=== PATIENT | male | born 1970 | race Caucasian/White ===

== ENCOUNTER 2016-08-02 21:07 | Emergency (ER) | payer SELFPAY ==
[2016-08-02 21:25] VITALS: TEMP 98.9
[2016-08-02] MEDS ORDERED: SODIUM CHLORIDE 0.9% 1,000 ML IV STA (22:04)
[2016-08-02] MEDS ORDERED: IPRATROPIUM-ALBUTEROL 3 ML NEB INHALATION STA (22:05)
[2016-08-02 22:22] VITALS: RESP 18
--- NOTE | 2016-08-02 22:32 | XR ---
EXAMINATION TYPE: XR chest 2V DATE OF EXAM: 08/02/2016 10:26 PM COMPARISON: NONE HISTORY: Short of breath and fever TECHNIQUE: Frontal and lateral views of the chest are obtained. FINDINGS: There is some patchy airspace infiltrate in the right upper lobe that is probably in the a nterior segment. The other lung daniels are clear. Heart and mediastinum are normal. Diaphragm is norm al. Bony thorax is intact. IMPRESSION: Right upper lobe pneumonia.
[2016-08-02 22:36] LABS: CH 34.4; CHCM 34.5; HCT 48.5 % (39.0-53.0); HDW 2.29; HGB 16.3 gm/dL (13.0-17.5); MCH 33.5 pg (25.0-35.0); MCHC 33.5 g/dL (31.0-37.0); MCV 100.1 fL (80.0-100.0); Mean Platelet Volume 7.2; RBC 4.85 m/uL (4.30-5.90); RDW 12.5 % (11.5-15.5); WBC 15.5 k/uL (3.8-10.6); WBC (Perox) 15.95
[2016-08-02 22:52] LABS: Partial Thromboplastin Time 31.3 sec (22.0-30.0); Prothrombin Time 10.5 sec (9.0-12.0)
[2016-08-02 22:59] LABS: Creatine Kinase 155 U/L (55-170)
--- NOTE | 2016-08-02 23:00 | ED ---
URI HPI - General Chief Complaint: Upper Respiratory Infection Stated Complaint: fever Time Seen by Provider: 08/02/16 21:30 Source: patient, RN notes reviewed Mode of arrival: ambulatory Limitations: no limitations - History of Present Illness Initial Comments: Patient is a 46-year-old male presents emergency room for evaluation of upper respiratory symptoms. Patient states he began not feeling well on . Patient states he has a cough, congestion and sore throat. Patient states that he's also had fevers. Patient states he's been alternating Tylenol and Motrin. Patient states that he has productive cough. Patient does admit he smokes a pack per day. Patient states he's been feeling short of breath and coughing. Patient states he has throat irritation from coughing. Patient denies abdominal pain or chest pain. Patient denies headache or dizziness. Patient states having slight right ear pain. Patient denies any pain or burning during urination, trouble urinating or blood in urine. Patient denies any flank pain. Patient denies any significant past medical history. Patient denies taking any medications. Patient states been taking [id number] medications for flu symptoms with no relief of symptoms. Patient denies receiving his influenza vaccine this year. - Related Data Home Medications Medication Instructions Recorded Confirmed Acetaminophen Tab [Tylenol Tab] 1,000 mg PO Q6HR PRN 08/02/16 08/02/16 D-Methorphan/Acetamin/Doxylamn 30 ml PO Q6H PRN 08/02/16 08/02/16 [Vicks Nyquil Cold & Flu Liquid] Dm/PE/Acetaminophen/Doxylamine 1 cap PO Q6H PRN 08/02/16 08/02/16 [Shruti-Anderson Plus Day-Night Cp] Ibuprofen [Motrin] 600 mg PO Q6H PRN 08/02/16 08/02/16 Previous Rx's Medication Instructions Recorded Albuterol Inhaler [Ventolin Hfa 1 - 2 puff INHALATION Q6HR PRN #1 08/03/16 Inhaler] inhaler Azithromycin [Zithromax Z-pack] 250 mg PO DIRECTED #6 tab 08/03/16 Allergies Allergy/AdvReac Type Severity Reaction Status Date / Time Penicillins Allergy Rash/Hives Verified 08/02/16 21:43 Review of Systems ROS Statement: Those systems with pertinent positive or pertinent negative responses have been documented in the HPI. ROS Other: All systems not noted in ROS Statement are negative. Past Medical History Past Medical History: No Reported History History of Any Multi-Drug Resistant Organisms: None Reported Past Surgical History: No Surgical Hx Reported Past Psychological History: No Psychological Hx Reported Smoking Status: Current every day smoker Past Alcohol Use History: Occasional Past Drug Use History: None Reported General Exam - General Exam Comments Initial Comments: Sitting in exam room, no acute distress. Limitations: no limitations General appearance: alert, in no apparent distress Head exam: Present: atraumatic, normocephalic, normal inspection Eye exam: Present: normal appearance ENT exam: Present: normal exam, normal oropharynx, mucous membranes moist, TM's normal bilaterally, normal external ear exam Neck exam: Present: normal inspection, full ROM. Absent: tenderness, lymphadenopathy Respiratory exam: Present: wheezes. Absent: respiratory distress Cardiovascular Exam: Present: regular rate, normal rhythm, normal heart sounds GI/Abdominal exam: Present: soft, normal bowel sounds. Absent: distended, tenderness, guarding, rebound, rigid Extremities exam: Present: normal inspection Back exam: Present: normal inspection Neurological exam: Present: alert, oriented X3, CN II-XII intact, normal gait Psychiatric exam: Present: normal affect, normal mood Skin exam: Present: warm, dry, intact, normal color. Absent: rash Course Vital Signs 08/02/16 08/02/16 08/02/16 21:23 22:10 22:20 Temperature 98.9 F Pulse Rate 100 88 98 Respiratory 20 Rate Blood Pressure 137/86 O2 Sat by Pulse 96 Oximetry 08/02/16 08/02/16 08/02/16 22:21 22:30 23:58 Temperature 98.9 F 98.9 F Pulse Rate 89 86 Respiratory 18 18 18 Rate Blood Pressure 128/78 129/81 O2 Sat by Pulse 95 97 Oximetry Medical Decision Making - Medical Decision Making Patient is a 46-year-old male presents to the emergency room for evaluation of fever, cough and congestion. Rapid influenza negative. Chest x-ray significant for right upper lobe pneumonia. Patient's d-dimer elevated. CT of chest shows no signs of pulmonary embolism. Patient states he is feeling better after breathing treatment. WBC slightly elevated. Patient will be started on IV Rocephin and PO azithromycin and sent home with azithromycin. Advised patient to follow up with his primary care provider for reevaluation in 1 to 2 days. Patient states he understands everything that was discussed with him. Return parameters discussed. Case discussed with Dr. Dahl. - Lab Data Result diagrams: 08/02/16 22:15 08/02/16 22:15 Lab Results 08/02/16 08/02/16 08/02/16 Range/Units 22:15 22:15 22:15 WBC 15.5 H (3.8-10.6) k/uL RBC 4.85 (4.30-5.90) m/uL Hgb 16.3 (13.0-17.5) gm/dL Hct 48.5 (39.0-53.0) % MCV 100.1 H (80.0-100.0) fL MCH 33.5 (25.0-35.0) pg MCHC 33.5 (31.0-37.0) g/dL RDW 12.5 (11.5-15.5) % Plt Count 203 (150-450) k/uL Neutrophils % (Manual) 53.0 % Band Neutrophils % 16.5 % Lymphocytes % (Manual) 17.5 % Monocytes % (Manual) 11.5 % Eosinophils % (Manual) 1.5 % Neutrophils # (Manual) 10.8 H (1.3-7.7) k/uL Lymphocytes # (Manual) 2.7 (1.0-4.8) k/uL Monocytes # (Manual) 1.8 H (0-1.0) k/uL Eosinophils # (Manual) 0.2 (0-0.7) k/uL Nucleated RBCs 0 (0-0) /100 WBC Manual Slide Review Performed Large Platelets Present Polychromasia Present Anisocytosis (manual) Present PT (9.0-12.0) sec INR (<1.1) APTT (22.0-30.0) sec D-Dimer (<0.60) mg/L FEU Sodium (137-145) mmol/L Potassium (3.5-5.1) mmol/L Chloride (98-107) mmol/L Carbon Dioxide (22-30) mmol/L Anion Gap mmol/L BUN (9-20) mg/dL Creatinine (0.66-1.25) mg/dL Est GFR (MDRD) Af Amer (>60 ml/min/1.73 sqM) Est GFR (MDRD) Non-Af (>60 ml/min/1.73 sqM) Glucose (74-99) mg/dL Plasma Lactic Acid Tyler (0.7-2.0) mmol/L Calcium (8.4-10.2) mg/dL Magnesium (1.6-2.3) mg/dL Total Bilirubin (0.2-1.3) mg/dL AST (17-59) U/L ALT (21-72) U/L Alkaline Phosphatase (38-126) U/L Total Creatine Kinase 155 (55-170) U/L CK-MB (CK-2) 0.5 (0.0-2.4) ng/mL CK-MB (CK-2) Rel Index 0.3 Troponin I <0.012 (0.000-0.034) ng/mL Total Protein (6.3-8.2) g/dL Albumin (3.5-5.0) g/dL Influenza Type A RNA Not Detected (Not Detectd) Influenza Type B (PCR) Not Detected (Not Detectd) 08/02/16 08/02/16 08/02/16 Range/Units 22:15 22:15 22:15 WBC (3.8-10.6) k/uL RBC (4.30-5.90) m/uL Hgb (13.0-17.5) gm/dL Hct (39.0-53.0) % MCV (80.0-100.0) fL MCH (25.0-35.0) pg MCHC (31.0-37.0) g/dL RDW (11.5-15.5) % Plt Count (150-450) k/uL Neutrophils % (Manual) % Band Neutrophils % % Lymphocytes % (Manual) % Monocytes % (Manual) % Eosinophils % (Manual) % Neutrophils # (Manual) (1.3-7.7) k/uL Lymphocytes # (Manual) (1.0-4.8) k/uL Monocytes # (Manual) (0-1.0) k/uL Eosinophils # (Manual) (0-0.7) k/uL Nucleated RBCs (0-0) /100 WBC Manual Slide Review Large Platelets Polychromasia Anisocytosis (manual) PT 10.5 (9.0-12.0) sec INR 1.0 (<1.1) APTT 31.3 H (22.0-30.0) sec D-Dimer 1.11 H (<0.60) mg/L FEU Sodium 139 (137-145) mmol/L Potassium 4.1 (3.5-5.1) mmol/L Chloride 104 (98-107) mmol/L Carbon Dioxide 23 (22-30) mmol/L Anion Gap 12 mmol/L BUN 16 (9-20) mg/dL Creatinine 0.96 (0.66-1.25) mg/dL Est GFR (MDRD) Af Amer >60 (>60 ml/min/1.73 sqM) Est GFR (MDRD) Non-Af >60 (>60 ml/min/1.73 sqM) Glucose 94 (74-99) mg/dL Plasma Lactic Acid Tyler 0.7 (0.7-2.0) mmol/L Calcium 9.3 (8.4-10.2) mg/dL Magnesium 1.9 (1.6-2.3) mg/dL Total Bilirubin 0.6 (0.2-1.3) mg/dL AST 29 (17-59) U/L ALT 23 (21-72) U/L Alkaline Phosphatase 73 (38-126) U/L Total Creatine Kinase (55-170) U/L CK-MB (CK-2) (0.0-2.4) ng/mL CK-MB (CK-2) Rel Index Troponin I (0.000-0.034) ng/mL Total Protein 6.7 (6.3-8.2) g/dL Albumin 3.8 (3.5-5.0) g/dL Influenza Type A RNA (Not Detectd) Influenza Type B (PCR) (Not Detectd) 08/03/16 00:23 NSR, ventricular rate 86 bpm, OR interval 188 ms, QRS duration 146 ms, QT/QTC 406/485 ms - Radiology Data Radiology results: report reviewed, image reviewed Disposition Clinical Impression: Right upper lobe pneumonia Disposition: HOME SELF-CARE Condition: Good Instructions: Community Acquired Pneumonia (ED) Additional Instructions: Take antibiotics as directed. Use inhaler as needed. Alternate Tylenol and Motrin as needed for fever. Please follow up with primary care provider for reevaluation in 1-2 days. If any new symptom arises or symptoms worsen, return to ER as soon as possible. Prescriptions: Albuterol Inhaler [Ventolin Hfa Inhaler] 1 - 2 puff INHALATION Q6HR PRN #1 inhaler PRN Reason: Shortness Of Breath Azithromycin [Zithromax Z-pack] 250 mg PO DIRECTED #6 tab Referrals: None,Stated [Primary Care Provider] - 1-2 days Time of Disposition: 00:20
[2016-08-02 23:08] LABS: ALT 23 U/L (21-72); AST 29 U/L (17-59); Alkaline Phosphatase 73 U/L (38-126); Anion Gap 12 mmol/L; Blood Urea Nitrogen 16 mg/dL (9-20); Calcium 9.3 mg/dL (8.4-10.2); Carbon Dioxide 23 mmol/L (22-30); Chloride 104 mmol/L (98-107); Glucose 94 mg/dL (74-99); Magnesium 1.9 mg/dL (1.6-2.3); Non-African American GFR(MDRD) >60 (>60 ml/min/1.73 sqM); Potassium 4.1 mmol/L (3.5-5.1); Sodium 139 mmol/L (137-145); Total Bilirubin 0.6 mg/dL (0.2-1.3); Total Protein 6.7 g/dL (6.3-8.2)
[2016-08-02 23:11] LABS: Creatine Kinase MB 0.5 ng/mL (0.0-2.4); Troponin I <0.012 ng/mL (0.000-0.034)
[2016-08-02] MEDS ORDERED: RX INFO: IV CONTRAST WAS GIVEN 1 EACH MISC MISCELLANE PRN (23:14)
--- NOTE | 2016-08-02 23:50 | CT ---
EXAMINATION TYPE: CT angio chest DATE OF EXAM: 08/02/2016 11:37 PM COMPARISON: NONE HISTORY: fever, SOB, elevated d-dimer, R/O PE CT DLP: DLP:463.20 mGycm Automated exposure control for dose reduction was used. CONTRAST: CTA scan of the thorax is performed with IV Contrast, patient injected with 65ml injected 35ml wasted mL of Omnipaque 350, pulmonary embolism protocol. . FINDINGS: There are 3-D post processed images. There is some patchy groundglass interstitial infiltrate in both upper lobes. There is no pleural eff usion. There is no pericardial effusion. There are bilateral bronchial lymph nodes that measure up to 1.5 cm. There is no evidence of thoracic aortic aneurysm or a dissection. I see no filling defects in the pulmonary arteries. There are a few mediastinal lymph nodes that emil ure up to 1 cm. Bony thorax is intact. IMPRESSION: NO EVIDENCE OF PULMONARY EMBOLISM. PULMONARY INTERSTITIAL INFILTRATES MOSTLY IN THE UPPER LOBES AND W ORSE ON THE RIGHT SIDE WITH MILD ADENOPATHY. SARCOIDOSIS SHOULD BE CONSIDERED. FINDINGS ARE NONSPECIF IC.
[2016-08-02] MEDS ORDERED: AZITHROMYCIN 500 MG TAB PO STA (23:57)
[2016-08-02 23:59] VITALS: BP 129/81; PULSE 86
[2016-08-03 00:34] LABS: Add Differential Manual Differential
[2016-08-03 00:38] LABS: Band Neutrophils % 16.5 %; Nucleated Red Blood Cells 0 /100 WBC (0-0); Total Cells Counted 200
[2016-08-03 00:39] LABS: Polychromasia Present
[2016-08-03 00:40] LABS: Large Platelets Present; Manual Review Performed
== END 2016-08-03 00:41 | disposition home or self-care (01) ==
LOC: EC 21:07
DX: J18.9 Pneumonia, unspecified organism (principal); F17.200 Nicotine dependence, unspecified, uncomplicated; Z88.0 Allergy status to penicillin
CPT/HCPCS: 36415; 94640; 93005; 85379; 80053; 82550; 82553; 83605; 83735; 84484; 85025; 85610; 85730; 87040; 87502; 71020; 71275; 99284; 96360; 96361; 96365; Q9967; J0696

== ENCOUNTER 2016-10-05 06:53 | Emergency (ER) | payer OTHER ==
[2016-10-05] MEDS ORDERED: HYDROcodone/APAP 7.5-325MG 1 EACH TAB PO ONE (07:28)
[2016-10-05] MEDS ORDERED: CYCLOBENZAPRINE 10 MG TAB PO STA (07:29)
[2016-10-05] MEDS ORDERED: predniSONE 50 MG TAB PO STA (07:29)
[2016-10-05] MEDS ORDERED: IBUPROFEN 800 MG TAB PO STA (07:30)
--- NOTE | 2016-10-05 07:33 | ED ---
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 He states was so severe brought him down. He states he gets worse with movement or certain positional changes. It can be sometimes sharp shooting achy. At rest currently at 7/10 in severity. He has been taking Motrin without much relief. He denies any urinary or fecal incontinence any weakness was upper or lower extremities or any other injuries. No fevers chills or sweats. MD Complaint: back pain, back injury - Related Data Home Medications Medication Instructions Recorded Confirmed Ibuprofen [Motrin] 400 mg PO Q6HR PRN 10/05/16 10/05/16 Previous Rx's Medication Instructions Recorded Cyclobenzaprine [Flexeril] 10 mg PO TID #14 tab 10/05/16 Hydrocodone/Acetaminophen [[place] 1 each PO Q6HR PRN #20 tab 10/05/16 5-325] predniSONE 20 mg PO BID #10 tab 10/05/16 Allergies Allergy/AdvReac Type Severity Reaction Status Date / Time Penicillins Allergy Rash/Hives Verified 10/05/16 07:47 Review of Systems ROS Statement: Those systems with pertinent positive or pertinent negative responses have been documented in the HPI. ROS Other: All systems not noted in ROS Statement are negative. Past Medical History Past Medical History: No Reported History History of Any Multi-Drug Resistant Organisms: None Reported Past Surgical History: No Surgical Hx Reported Past Psychological History: No Psychological Hx Reported Smoking Status: Current every day smoker Past Alcohol Use History: Occasional Past Drug Use History: None Reported General Exam - General Exam Comments Initial Comments: This a well-developed well-nourished awake alert oriented 3 male Limitations: no limitations General appearance: alert, anxious, in distress Head exam: Present: atraumatic, normocephalic, normal inspection Eye exam: Present: normal appearance, PERRL, EOMI. Absent: scleral icterus, conjunctival injection, periorbital swelling ENT exam: Present: normal exam, mucous membranes moist Neck exam: Present: normal inspection. Absent: tenderness, meningismus, lymphadenopathy Respiratory exam: Present: normal lung sounds bilaterally. Absent: respiratory distress, wheezes, rales, rhonchi, stridor Cardiovascular Exam: Present: regular rate, normal rhythm, normal heart sounds. Absent: systolic murmur, diastolic murmur, rubs, gallop, clicks GI/Abdominal exam: Present: soft, normal bowel sounds. Absent: distended, tenderness, guarding, rebound, rigid Rectal exam: Present: deferred Extremities exam: Present: normal inspection. Absent: full ROM Back exam: Present: tenderness, muscle spasm, paraspinal tenderness. Absent: CVA tenderness (R), CVA tenderness (L), vertebral tenderness (Tenderness palpation over the L4 5 S1 paraspinous muscles of the spinous process tenderness mild tenderness to the superior gluteus more in the right than the left.) Neurological exam: Present: alert, oriented X3, CN II-XII intact Psychiatric exam: Present: normal affect, normal mood Skin exam: Present: warm, dry, intact, normal color. Absent: rash Course Vital Signs 10/05/16 10/05/16 06:59 08:21 Temperature 97.9 F Pulse Rate 83 76 Respiratory 18 18 Rate Blood Pressure 177/98 171/102 O2 Sat by Pulse 98 98 Oximetry - Reevaluation(s) Reevaluation #1: 10/05/16 07:33 The patient was offered choices for pain medication he prefers oral. Medical Decision Making - Medical Decision Making I did discuss the findings with the patient and his he is feeling a bit better. He will be placed on NSAIDS and muscle relaxers off X 3 days with ortho FU. - Radiology Data Radiology results: report reviewed, image reviewed (i reviewed the x rays and reports no acute changes.) Disposition Clinical Impression: Strain of lumbar region, Mechanical back pain Disposition: HOME SELF-CARE Condition: Good Instructions: Acute Low Back Pain (ED), Low Back Strain (ED) Prescriptions: Cyclobenzaprine [Flexeril] 10 mg PO TID #14 tab Hydrocodone/Acetaminophen [[place] 5-325] 1 each PO Q6HR PRN #20 tab PRN Reason: Pain predniSONE 20 mg PO BID #10 tab Referrals: None,Stated [Primary Care Provider] - 1-2 days
[2016-10-05] MEDS ORDERED: HYDROmorphone 1 MG/ML 1 ML SYRINGE IVP STA (07:35)
[2016-10-05] MEDS ORDERED: LORazepam 2 MG/ML SYRINGE IV STA (07:35)
[2016-10-05] MEDS ORDERED: PROPOFOL 10 MG/ML 100 ML VIAL IV ONE (07:35)
--- NOTE | 2016-10-05 08:09 | XR ---
EXAMINATION TYPE: XR lumbosacral spine min 4V DATE OF EXAM ORDERED: 10/05/2016 8:02 AM HISTORY: Pain. COMPARISON: None. FINDINGS: Vertebral body height and alignment are maintained. There is no spondylolysis or spondylol isthesis. There is mild hypertrophic spondylosis at L3-4 and L4-5. There is minimal spondylosis defor dalton at L2-3 and L3-4. The pedicles are intact. The facets are unremarkable. IMPRESSION: 1. NO ACUTE OSSEOUS LESION. 2. MILD DEGENERATIVE CHANGE.
[2016-10-05 08:22] VITALS: PULSE 76
[2016-10-05 10:02] VITALS: BP 153/99; RESP 20; TEMP 99.5
== END 2016-10-05 10:02 | disposition home or self-care (01) ==
LOC: EC 06:53
DX: S39.012A Strain of muscle, fascia and tendon of lower back, initial encounter (principal); F17.200 Nicotine dependence, unspecified, uncomplicated; Z88.0 Allergy status to penicillin; X58.XXXA Exposure to other specified factors, initial encounter; Y99.0 Civilian activity done for income or pay
CPT/HCPCS: 72110; 99283; J7512

== ENCOUNTER 2019-05-23 10:10 | Observation (INO) | payer BC ==
[2019-05-23] MEDS ORDERED: ASPIRIN 81 MG PO STA (10:40)
--- NOTE | 2019-05-23 10:48 | ED ---
Chest Pain HPI - General Chief Complaint: Chest Pain Stated Complaint: chest pain/left arm numbness Time Seen by Provider: 05/23/19 10:30 Source: patient Mode of arrival: ambulatory Limitations: no limitations - History of Present Illness Initial Comments: Patient is a 48-year-old male with history of hypertension presenting to the emergency department with chief complaint of chest pain. Patient states this morning he is noticed a sudden onset of right-sided chest pain without any radiation that was followed by a tingling sensation in his left hand that radiated proximally. He also reports developing pain along the left shoulder that radiated to the left side of his neck. States the pain and since resolved although the sensation is left upper extremity remains. He denies any lightheadedness, dizziness, diaphoretic episodes, nausea or vomiting. Does report mild shortness of breath and states that is his baseline because he is a lifelong smoker. Patient denies a history of hyperlipidemia but does have a strong family history of early cardiovascular disease. 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 Does not take aspirin. Denies left-sided versus right sudden weakness or paresthesias. Denies any blurred vision. Denies any abdominal or back pain. - Related Data Home Medications Medication Instructions Recorded Confirmed Ibuprofen [Motrin] 800 mg PO TID PRN 10/05/16 05/23/19 Allergies Allergy/AdvReac Type Severity Reaction Status Date / Time Penicillins Allergy Severe Rash/Hives Verified 05/23/19 12:41 Review of Systems ROS Statement: Those systems with pertinent positive or pertinent negative responses have been documented in the HPI. ROS Other: All systems not noted in ROS Statement are negative. EKG Findings - EKG Comments: EKG Findings:: Normal sinus rhythm, right bundle branch block, similar EKG to 08/02/16. Ventricular rate 76, MS interval 190, QRS duration 144, QTC 479 Past Medical History Past Medical History: No Reported History History of Any Multi-Drug Resistant Organisms: None Reported Past Surgical History: No Surgical Hx Reported Past Psychological History: No Psychological Hx Reported Smoking Status: Current every day smoker Past Alcohol Use History: Occasional Past Drug Use History: None Reported General Exam Limitations: no limitations General appearance: alert, in no apparent distress Head exam: Present: atraumatic, normocephalic, normal inspection Eye exam: Present: normal appearance, PERRL, EOMI Pupils: Present: normal accommodation ENT exam: Present: normal exam, normal oropharynx, mucous membranes moist, TM's normal bilaterally, normal external ear exam Neck exam: Present: normal inspection, full ROM Respiratory exam: Present: normal lung sounds bilaterally. Absent: respiratory distress, wheezes, rales Cardiovascular Exam: Present: regular rate, normal rhythm, normal heart sounds Extremities exam: Present: normal inspection, full ROM, normal capillary refill, other (+2 ulnar and radial pulses bilaterally.) Back exam: Present: normal inspection, full ROM Neurological exam: Present: alert, oriented X3, CN II-XII intact, normal gait Psychiatric exam: Present: normal affect, normal mood Skin exam: Present: warm, dry, intact, normal color Course Vital Signs 05/23/19 10:20 Temperature 97.8 F Pulse Rate 76 Respiratory 20 Rate Blood Pressure 171/97 O2 Sat by Pulse 99 Oximetry Chest Pain [facility] - Differential Diagnosis ACS, Chest Wall Syndrome - [facility] Patient is a 48-year-old male presenting to the emergency department with a chief complaint of left shoulder pain. Patient presenting with atypical chest pain atypical features. Left shoulder pain somewhat reproducible with palpation. Chest x-ray is unremarkable aside from a calcified granuloma on the left lung base. Initial troponin is negative. EKG shows a right bundle-branch block although it appears to be present from an EKG from 3 years ago. He reports the symptoms have since resolved. He says the symptoms have mostly resolved since. Patient was given 325 of aspirin initially. Patient has a heart score of 5. Patient will be admitted for serial troponins. Case discussed with Dr. Owens. Abdomen physician is . Cardiology consulted. Disposition Clinical Impression: Chest pain, Right bundle branch block (RBBB) on electrocardiogram (ECG) Disposition: ADMITTED IP TO THIS [facility] Condition: Stable Instructions (If sedation given, give patient instructions): Chest Pain (ED) Additional Instructions: Patient will be admitted Is patient prescribed a controlled substance at d/c from ED?: No Referrals: Jairo Mccoy MD [Primary Care Provider] - 1-2 days Time of Disposition: 12:50
[2019-05-23 11:08] LABS: Basophils # (A) 0.2 k/uL (0-0.2); Basophils % (A) 2 %; Eosinophils # (A) 0.2 k/uL (0-0.7); Eosinophils % (A) 1 %; HGB 17.4 gm/dL (13.0-17.5); Lymphocytes # (A) 2.5 k/uL (1.0-4.8); Lymphocytes % (A) 21 %; MCH 34.3 pg (25.0-35.0); MCHC 33.5 g/dL (31.0-37.0); MCV 102.2 fL (80.0-100.0); Mean Platelet Volume 7.6; Monocytes # (A) 0.8 k/uL (0-1.0); Monocytes % (A) 7 %; Neutrophils # (A) 7.7 k/uL (1.3-7.7); Neutrophils % (A) 67 %; Platelet Count 209 k/uL (150-450); RBC 5.09 m/uL (4.30-5.90); WBC 11.6 k/uL (3.8-10.6)
[2019-05-23 11:15] LABS: ALT 24 U/L (4-49); AST 28 U/L (17-59); African American GFR (CKD) >90 (>60 ml/min/1.73 sqM); Albumin 4.1 g/dL (3.5-5.0); Alkaline Phosphatase 78 U/L (38-126); Anion Gap 8 mmol/L; Blood Urea Nitrogen 15 mg/dL (9-20); Calcium 9.4 mg/dL (8.4-10.2); Carbon Dioxide 28 mmol/L (22-30); Chloride 104 mmol/L (98-107); Glucose 99 mg/dL (74-99); Non-African American GFR(CKD) >90 (>60 ml/min/1.73 sqM); Potassium 3.9 mmol/L (3.5-5.1); Sodium 140 mmol/L (137-145); Total Bilirubin 0.6 mg/dL (0.2-1.3)
[2019-05-23 11:25] LABS: INR 0.9 (<1.2); Partial Thromboplastin Time 30.3 sec (22.0-30.0); Prothrombin Time 10.2 sec (9.0-12.0)
--- NOTE | 2019-05-23 11:27 | XR ---
EXAMINATION TYPE: XR chest 2V DATE OF EXAM: 05/23/2019 COMPARISON: Chest x-ray and CTA chest August 02, 2016. HISTORY: Chest pain. TECHNIQUE: Frontal and lateral views of the chest are obtained. FINDINGS: Stable roughly 1 cm calcified nodule or granuloma left lung base period There is no focal air space opacity, pleural effusion, or pneumothorax seen. The cardiac silhouette size is within nor mal limits. The osseous structures are intact. IMPRESSION: No suspicious acute process.
[2019-05-23] MEDS ORDERED: NITROGLYCERIN SL TABS 0.4 MG TAB SUBLINGUAL PRN (12:43)
[2019-05-24 07:10] VITALS: RESP 18
[2019-05-24 08:07] LABS: Cholesterol 256 mg/dL (<200); HDL Cholesterol 39 mg/dL (40-60); LDL Cholesterol,Calculated 189 mg/dL (0-99); Triglycerides 139 mg/dL (<150)
--- NOTE | 2019-05-24 08:52 | US ---
EXAMINATION TYPE: US gallbladder DATE OF EXAM: 05/24/2019 COMPARISON: NONE CLINICAL HISTORY: abd pain. ABD/Chest pain EXAM MEASUREMENTS: Liver Length: 14.1 cm Gallbladder Wall: 0.2 cm CBD: 0.4 cm Right Kidney: 10.8 x 5.3 x 4.9 cm Pancreas: Obscured by bowel gas Liver: Increased attenuation Gallbladder: Probable non-mobile gallstones near neck, wall not thickened Evidence for sonographic Hassan's sign: No CBD: wnl Right Kidney: wnl Pancreas suboptimally seen on images stated secondary to overlying bowel gas per technologist. Visual ized liver is heterogeneously hyperechoic without intrahepatic ductal dilatation. Evaluation for foca l masses is suboptimal due to the heterogeneity. Gallbladder is identified with hyperechoic focus kathi r gallbladder neck favoring gallstone but mobility and shadowing are not well-visualized. No pericho lecystic fluid or abnormal gallbladder wall thickening. Sonographic Hassan sign negative. IMPRESSION: Suspect single intraluminal gallstone without secondary ultrasound evidence for acute cho lecystitis. Probable fatty infiltration of liver. Correlate clinically and with liver lab values.
[2019-05-24] MEDS ORDERED: LISINOPRIL 5 MG TAB PO SCH (09:00)
[2019-05-24] MEDS ORDERED: ATORVASTATIN 80 MG TAB PO SCH (09:00)
[2019-05-24] MEDS ORDERED: ASPIRIN 325 MG TAB PO SCH (09:00)
[2019-05-24] MEDS ORDERED: LISINOPRIL 10 MG TAB PO SCH (10:30)
--- NOTE | 2019-05-24 10:32 | P.CRDCN ---
History of Present Illness History of present illness: HISTORY OF PRESENTING ILLNESS This is a pleasant 48-year-old male past medical history significant for hypertension not currently taking his anti-hypertensives, chronic nicotine dependence and significant family history of premature coronary artery disease. His fathers first [place] was at 48. 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 We have been asked to see in consultation for chest pain. 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 There was no associated shortness of breath, dizziness, palpitations, nausea, vomiting or diaphoresis. DIAGNOSTICS EKG reveals sinus mechanism with right bundle branch block. Chest xray negative for an acute cardiopulmonary process. . Laboratory reviewed, WBC 11.6, hgb 17.4, plt 209, sodium 140, potassium 2.9, creatinine 0.99, magnesium 2.0, cardiac enzymes negative x3, LDL 189, HDL 39. He takes no cardiac medications. REVIEW OF SYSTEMS At the time of my exam: CONSTITUTIONAL: Denies fever or chills. CARDIOVASCULAR: Denies chest pain, shortness of breath, orthopnea, PND or palpitations. RESPIRATORY: Denies cough. GASTROINTESTINAL: Denies abdominal pain, diarrhea, constipation, nausea or vomiting. MUSCULOSKELETAL: Denies myalgias. NEUROLOGIC: Denies numbness, tingling or weakness. ENDOCRINE: Denies fatigue, weight change, polydipsia or polyurina. GENITOURINARY: Denies burning, hematuria or urgency with micturation. HEMATOLOGIC: Denies history of anemia or bleeding. PHYSICAL EXAMINATION Blood pressure 154/86 heart rate 76 afebrile and maintaining oxygen saturation on room air. CONSTITUTIONAL: No apparent distress. HEENT: Head is normocephalic. Pupils are equal, round. Sclerae anicteric. Mucous membranes of the mouth are moist. No JVD. No carotid bruit. CHEST EXAMINATION: Lungs are clear to auscultation. No chest wall tenderness is noted on palpation or with deep breathing. HEART EXAMINATION: Regular rate and rhythm. S1, S2 heard. No murmurs, gallops or rub. ABDOMEN: Soft, nontender. Positive bowel sounds. EXTREMITIES: 2+ peripheral pulses, no lower extremity edema and no calf tenderness. NEUROLOGIC EXAMINATION: Patient is awake, alert and oriented x3. ASSESSMENT Chest pain, atypical. An acute coronary event has been ruled out. Hypertension Dyslipidmia Chronic nicotine dependence Strong family history for premature coronary artery disease PLAN Initiate lisinopril 10 mg daily and atorvastatin 80 mg daily. Obtain 2D echocardiogram and doppler study to assess cardiac structure and function. Perform cardiolyte nuclear stress test to assess for reversible cardiac ischemia. Smoking cessation recommended. Further recommendations to follow based on clinical course. Thank you kindly for this consultation. Nurse Practitioner note has been reviewed, I agree with a documented findings and plan of care. Patient was seen and examined. Past Medical History Past Medical History: No Reported History History of Any Multi-Drug Resistant Organisms: None Reported Past Surgical History: No Surgical Hx Reported Past Psychological History: No Psychological Hx Reported Smoking Status: Current every day smoker Past Alcohol Use History: Occasional Past Drug Use History: None Reported Medications and Allergies Home Medications Medication Instructions Recorded Confirmed Type Ibuprofen [Motrin] 800 mg PO TID PRN 10/05/16 05/23/19 History Allergies Allergy/AdvReac Type Severity Reaction Status Date / Time Penicillins Allergy Severe Rash/Hives Verified 05/23/19 12:41 Physical Exam Vitals: Vital Signs Temp Pulse Pulse Pulse Resp BP BP 05/24/19 07:09 96.8 F L 76 18 154/86 05/24/19 04:00 98.2 F 73 16 144/88 05/23/19 23:40 98.1 F 74 17 111/71 05/23/19 19:13 98.1 F 75 18 123/75 05/23/19 15:56 98.0 F 76 18 131/81 05/23/19 13:47 05/23/19 13:21 97.7 F 64 05/23/19 13:08 150/89 05/23/19 10:20 97.8 F 76 20 171/97 BP Pulse Ox 05/24/19 07:09 100 05/24/19 04:00 98 05/23/19 23:40 98 05/23/19 19:13 97 05/23/19 15:56 97 05/23/19 13:47 99 05/23/19 13:21 158/98 99 05/23/19 13:08 99 05/23/19 10:20 99 Intake and Output 05/23/19 05/24/19 05/24/19 22:59 06:59 14:59 Intake Total 420 Balance 420 Intake: Oral 420 Other: Voiding Method Toilet Toilet # Voids 1 1 Results 05/23/19 10:48 05/23/19 10:48 Cardiac Enzymes 05/23/19 05/23/19 05/23/19 Range/Units 10:48 10:48 16:52 AST 28 (17-59) U/L Troponin I <0.012 <0.012 (0.000-0.034) ng/mL 05/23/19 Range/Units 22:50 AST (17-59) U/L Troponin I <0.012 (0.000-0.034) ng/mL Coagulation 05/23/19 Range/Units 10:48 PT 10.2 (9.0-12.0) sec APTT 30.3 H (22.0-30.0) sec Lipids 05/24/19 Range/Units 07:07 Triglycerides 139 (<150) mg/dL Cholesterol 256 H (<200) mg/dL HDL Cholesterol 39 L (40-60) mg/dL CBC 05/23/19 Range/Units 10:48 WBC 11.6 H (3.8-10.6) k/uL RBC 5.09 (4.30-5.90) m/uL Hgb 17.4 (13.0-17.5) gm/dL Hct 52.0 (39.0-53.0) % Plt Count 209 (150-450) k/uL Comprehensive Metabolic Panel 05/23/19 Range/Units 10:48 Sodium 140 (137-145) mmol/L Potassium 3.9 (3.5-5.1) mmol/L Chloride 104 (98-107) mmol/L Carbon Dioxide 28 (22-30) mmol/L BUN 15 (9-20) mg/dL Creatinine 0.99 (0.66-1.25) mg/dL Glucose 99 (74-99) mg/dL Calcium 9.4 (8.4-10.2) mg/dL AST 28 (17-59) U/L ALT 24 (4-49) U/L Alkaline Phosphatase 78 (38-126) U/L Total Protein 7.0 (6.3-8.2) g/dL Albumin 4.1 (3.5-5.0) g/dL Current Medications Generic Name Dose Route Start Last Admin Trade Name Freq PRN Reason Stop Dose Admin Aspirin 325 mg 05/24/19 09:00 Aspirin PO DAILY HONEY Nitroglycerin 0.4 mg 05/23/19 12:43 Nitrostat SUBLINGUAL Q5M PRN Chest Pain Intake and Output 05/23/19 05/24/19 05/24/19 22:59 06:59 14:59 Intake Total 420 Balance 420 Intake: Oral 420 Other: Voiding Method Toilet Toilet # Voids 1 1 05/23/19 10:48 05/23/19 10:48
[2019-05-24] MEDS ORDERED: REGADENOSON 0.4 MG/5 ML SYRINGE IV ONE (11:30)
--- NOTE | 2019-05-24 12:03 | ECHOF ---
Referral Reason:cp MEASUREMENTS -------- HEIGHT: 175.3 cm WEIGHT: 102.1 kg BP: RVIDd: 3.4 cm (< 3.3) IVSd: 1.2 cm (0.6 - 1.1) LVIDd: 4.9 cm (3.9 - 5.3) LVPWd: 1.3 cm (0.6 - 1.1) IVSs: 1.4 cm LVIDs: 3.1 cm LVPWs: 1.6 cm LA Diam: 3.0 cm (2.7 - 3.8) Ao Diam: 2.8 cm (2.0 - 3.7) AV Cusp: 1.6 cm (1.5 - 2.6) LA Diam: 3.6 cm (2.7 - 3.8) MV EXCURSION: 18.742 mm (> 18.000) MV EF SLOPE: 95 mm/s (70 - 150) EPSS: 0.3 cm MV E Aleksey: 0.52 m/s MV DecT: 212 ms MV A Aleksey: 0.68 m/s MV E/A Ratio: 0.77 RAP: 5.00 mmHg RVSP: 12.80 mmHg FINDINGS -------- Sinus rhythm. This was a techncally difficult study with suboptimal views, , Lumason utilized for enhancement of im ages. The left ventricular size is normal. There is mild concentric left ventricular hypertrophy. Overa ll left ventricular systolic function is normal with, an EF between 55 - 60 %. The right ventricle is normal in size. The left atrial size is normal. The right atrial size is normal. 5.0mg OF Lumason UTLIZED: 2 OR MORE WALL SEGMENTS NOT VISUALIZED. The aortic valve is trileaflet, and appears structurally normal. No aortic stenosis or regurgitation. Mild mitral annular calcification present. Mild mitral regurgitation is present. Mild tricuspid regurgitation present. Right ventricular systolic pressure is normal at < 35 mmHg. There is no evidence of pulmonary hypertension. The pulmonic valve is normal. The aortic root size is normal. There is no pericardial effusion. CONCLUSIONS -------- 1. Sinus rhythm. 2. This was a techncally difficult study with suboptimal views, , Lumason utilized for enhancement of images. 3. The left ventricular size is normal. 4. There is mild concentric left ventricular hypertrophy. 5. Overall left ventricular systolic function is normal with, an EF between 55 - 60 %. 6. The right ventricle is normal in size. 7. The left atrial size is normal. 8. The right atrial size is normal. 9. 5.0mg OF Lumason UTLIZED: 2 OR MORE WALL SEGMENTS NOT VISUALIZED. 10. The aortic valve is trileaflet, and appears structurally normal. No aortic stenosis or regurgitat ion. 11. Mild mitral annular calcification present. 12. Mild mitral regurgitation is present. 13. Mild tricuspid regurgitation present. 14. Right ventricular systolic pressure is normal at < 35 mmHg. 15. There is no evidence of pulmonary hypertension. 16. The pulmonic valve is normal. 17. The aortic root size is normal. 18. There is no pericardial effusion. DIRECTOR CPG: Shyla Velasquez RDCS
--- NOTE | 2019-05-24 12:48 | EST ---
EXERCISE STRESS DATE OF SERVICE: 05/24/2019 AGE: 48 SEX: Male HT: 69 WT: 225 PROTOCOL: Lexiscan Cardiolite STAGE: DURATION OF EXERCISE: HEART RATE REST: 79 BLOOD PRESSURE REST: 129/82 MAXIMUM HEART RATE ACHIEVED: 103 MAXIMUM BLOOD PRESSURE: 184/51 85% MPHR: 147 100% MPHR: 173 METS: INDICATIONS: Chest pain. CLINICAL INFORMATION: The patient was given Lexiscan injection over a period of 15 seconds. Peak heart rate of 103 was achieved. Maximum blood pressure of 184/51 mmHg was noted. Resting EKG shows normal sinus rhythm with a QRS morphology suggestive of right bundle branch block pattern was noted. No ST-segment depression suggestive of ischemia is noted. The results of the nuclear study will follow. DANIELLE / IJN: [id number] /
[2019-05-24 13:10] VITALS: BP 148/74; PULSE 69; TEMP 98.1
--- NOTE | 2019-05-24 13:26 | NM ---
EXAMINATION TYPE: NM stress lexiscan cardiolite DATE OF EXAM: 05/24/2019 COMPARISON: NONE HISTORY: Chest pain TECHNIQUE: After the intravenous administration of 9.5 mCi Tc 99m Sestamibi - Cardiolite resting SPE CT images acquired 50 minutes post injection. The patient received 0.4mg Lexiscan, 24.4 mCi Tc 99m Sestamibi - Stress images obtained [address] injection FINDINGS: Radiotracer distribution through the stress images appears essentially normal. There is some diminish ed radiotracer along the anterior wall on the resting images suggesting this to be artifact. Gated wall motion is normal. Ejection fraction of 56% is normal. IMPRESSION: 1. No stress-induced ischemic changes.
--- NOTE | 2019-05-24 20:13 | P.HPIM ---
History of Present Illness H&P Date: 05/24/19 Chief Complaint: Left shoulder arm sharp pain History of presenting complaint: This is a pleasant 48-year-old patient who follows with Dr. Mcallister. Patient presents with an episode of left arm numbness tingling is in 6 trolling and shooting pains from the shoulder to the neck and the arm. It happened a few times. Her patient's had problems with his whole spine for many years. Does visit a chiropractor. Including pain in the neck. There is no obvious prechordal pain. No shortness of breath no dizziness no lightheadedness. Denies any past cardiac history. Is rather active otherwise. Admitted for the same. Patient states he's had x-rays done of the spine by his chiropractor in the past. Has been told he has arthritis Review of systems: GEN.: None EYES: None HEENT: None NECK: None RESPIRATORY: None CARDIOVASCULAR: None GASTROINTESTINAL: None GENITOURINARY: None MUSCULOSKELETAL: Chronic spine problems LYMPHATICS: None HEMATOLOGICAL: None PSYCHIATRY: None NEUROLOGICAL: None Social history: Smokes a pack a day for over 38 years. Does [employer] work. His alcohol occasionally. More so in the past. Denies use of any recreational drugs. Family history: Reviewed, noncontributory to presentation Physical examination: VITAL SIGNS: 97.8, 76, 20, 150/89, 99% room air GENERAL: BMI 33.2, sitting upon in distress. EYES: Pupils equal. Conjunctiva normal. HEENT: External appearance of nose and ears normal, oral cavity grossly normal. NECK: JVD not raised; masses not palpable. HEART: First and second heart sounds are normal; no edema. LUNGS: Respiratory rate normal; clear to auscultation. ABDOMEN: Soft, nontender, liver spleen not palpable, no masses palpable. PSYCH: Alert and oriented x3; mood and affect normal. NEUROLOGICAL: Cranial nerves grossly intact; no facial asymmetry, power and sensation grossly intact. LYMPHATICS: No lymph nodes palpable in the axilla and neck INVESTIGATIONS, reviewed in the clinical context: White count 11.6 room 7.4 potassium 3.9 creatinine 0.99 Troponin I less than 0.0123 LDL 189 -EKG tracing personally reviewed by me-right bundle-branch block, sinus rhythm Assessment: -This is a patient presents with sharp shooting pain down the left arm tingling numbness and pain in the neck. Has a known history of arthritis of the cervical spine. This appears to be more manifestation of radiculopathy. Arthritis of the cervical spine. Because of presentation down the arm cardiac cause was to b e ruled out. -Chronic nicotine dependence patient cigarette smoker -Obesity BMI 33.2 -Essential hypertension -Right bundle part proximal -Left lung granuloma 1 cm -Hyperlipidemia Plan: Cardiology was consulted. They ordered stress test. Serial cardiac enzymes were negative. Smoke cessation counseling: This was done with the patient. Nicotine patch is being given. More than 3 minutes was spent for this Past Medical History Past Medical History: No Reported History History of Any Multi-Drug Resistant Organisms: None Reported Past Surgical History: No Surgical Hx Reported Past Psychological History: No Psychological Hx Reported Smoking Status: Current every day smoker Past Alcohol Use History: Occasional Past Drug Use History: None Reported Medications and Allergies Home Medications Medication Instructions Recorded Confirmed Type Aspirin 81 mg PO DAILY #30 chew 05/24/19 Rx Atorvastatin [Lipitor] 40 mg PO DAILY #30 tablet 05/24/19 Rx Lisinopril-Hctz 10-12.5 mg 1 tab PO DAILY #30 tab 05/24/19 Rx [Zestoretic 10-12.5] Nicotine 21Mg/24Hr Patch [Habitrol] 1 each TRANSDERM DAILY #14 patch 05/24/19 Rx Allergies Allergy/AdvReac Type Severity Reaction Status Date / Time Penicillins Allergy Severe Rash/Hives Verified 05/23/19 12:41 Physical Exam Vitals: Vital Signs Temp Pulse Pulse Pulse Resp BP BP 05/24/19 07:09 96.8 F L 76 18 154/86 05/24/19 04:00 98.2 F 73 16 144/88 05/23/19 23:40 98.1 F 74 17 111/71 05/23/19 19:13 98.1 F 75 18 123/75 05/23/19 15:56 98.0 F 76 18 131/81 05/23/19 13:47 05/23/19 13:21 97.7 F 64 05/23/19 13:08 150/89 05/23/19 10:20 97.8 F 76 20 171/97 BP Pulse Ox 05/24/19 07:09 100 05/24/19 04:00 98 05/23/19 23:40 98 05/23/19 19:13 97 05/23/19 15:56 97 05/23/19 13:47 99 05/23/19 13:21 158/98 99 05/23/19 13:08 99 05/23/19 10:20 99 Intake and Output 05/23/19 05/24/19 05/24/19 22:59 06:59 14:59 Intake Total 420 Balance 420 Intake: Oral 420 Other: Voiding Method Toilet Toilet # Voids 1 1 Results CBC & Chem 7: 05/23/19 10:48 05/23/19 10:48 Labs: Abnormal Lab Results - Last 24 Hours (Table) 05/23/19 05/23/19 05/24/19 Range/Units 10:48 10:48 07:07 WBC 11.6 H (3.8-10.6) k/uL MCV 102.2 H (80.0-100.0) fL APTT 30.3 H (22.0-30.0) sec Cholesterol 256 H (<200) mg/dL LDL Cholesterol, Calc 189 H (0-99) mg/dL HDL Cholesterol 39 L (40-60) mg/dL Thrombosis Risk Factor Assmnt - Choose All That Apply Any of the Below Risk Factors Present?: Yes Each Factor Represents 1 point: Age 41-60 years Other Risk Factors: No Thrombosis Risk Factor Assessment Total Risk Factor Score: 1 Thrombosis Risk Factor Assessment Level: Low Risk
--- NOTE | 2019-05-24 20:17 | P.DS ---
Providers Date of admission: 05/23/19 12:34 Expected date of discharge: 05/24/19 Attending physician: Jamey Aparicio Consults: 05/23/19 12:43 Consult Physician Urgent Consulting Provider: Casey Lee Consult Reason/Comments: Chest pain, sterile troponins Do you want consulting provider notified?: Yes Primary care physician: [facility] Course: Chief Complaint: Left shoulder arm sharp pain History of presenting complaint: This is a pleasant 48-year-old patient who follows with Dr. Mcallister. Patient presents with an episode of left arm numbness tingling is in 6 trolling and shooting pains from the shoulder to the neck and the arm. It happened a few times. Her patient's had problems with his whole spine for many years. Does visit a chiropractor. Including pain in the neck. There is no obvious prechordal pain. No shortness of breath no dizziness no lightheadedness. Denies any past cardiac history. Is rather active otherwise. Admitted for the same. Patient states he's had x-rays done of the spine by his chiropractor in the past. Has been told he has arthritis Patient's troponins came back negative. Left second stress test was negative. Diagnoses felt to be cervical spine arthritis with radiculopathy. Patient to follow with his family doctor. Medication was started for blood pressure and cholesterol. Discussion discharge planning more than 35 minutes - CONSULTATION: DR. VC BANKS FROM CARDIOLOGY Physical examination: VITAL SIGNS: 97.8, 76, 20, 150/89, 99% room air GENERAL: BMI 33.2, sitting upon in distress. EYES: Pupils equal. Conjunctiva normal. HEENT: External appearance of nose and ears normal, oral cavity grossly normal. NECK: JVD not raised; masses not palpable. HEART: First and second heart sounds are normal; no edema. LUNGS: Respiratory rate normal; clear to auscultation. ABDOMEN: Soft, nontender, liver spleen not palpable, no masses palpable. PSYCH: Alert and oriented x3; mood and affect normal. 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 -Chronic nicotine dependence patient cigarette smoker -Obesity BMI 33.2 -Essential hypertension -Right bundle part proximal -Left lung granuloma 1 cm -Hyperlipidemia -Solitary gallstone, asymptomatic -Possible hepatic stenosis Disposition: - Patient Condition at Discharge: Stable Plan - Discharge Summary Discharge Rx Participant: No New Discharge Prescriptions: New Aspirin 81 mg PO DAILY #30 chew Nicotine 21Mg/24Hr Patch [Habitrol] 1 each TRANSDERM DAILY #14 patch Atorvastatin [Lipitor] 40 mg PO DAILY #30 tablet Lisinopril-Hctz 10-12.5 mg [Zestoretic 10-12.5] 1 tab PO DAILY #30 tab Discontinued Ibuprofen [Motrin] 800 mg PO TID PRN PRN Reason: Pain Discharge Medication List Aspirin 81 mg PO DAILY #30 chew 05/24/19 [Rx] Atorvastatin [Lipitor] 40 mg PO DAILY #30 tablet 05/24/19 [Rx] Lisinopril-Hctz 10-12.5 mg [Zestoretic 10-12.5] 1 tab PO DAILY #30 tab 05/24/19 [Rx] Nicotine 21Mg/24Hr Patch [Habitrol] 1 each TRANSDERM DAILY #14 patch 05/24/19 [Rx] Follow up Appointment(s)/Referral(s): Jairo Mccoy MD [Primary Care Provider] - 1-2 days Teddy Banks MD [STAFF PHYSICIAN] - 2 Weeks (office will call patient with appointment date and time.) Patient Instructions/Handouts: Chest Pain (ED) Activity/Diet/Wound Care/Special Instructions: Patient will be admitted
[2019-05-25] MEDS ORDERED: ASPIRIN 81 MG PO SCH (09:00)
== END 2019-05-24 15:48 ==
LOC: EC 10:10 → 1SOBS 12:34
PROVIDERS: ADMIT Hospitalist; ATTEND Hospitalist
DX: R07.89 Other chest pain (principal); M47.22 Other spondylosis with radiculopathy, cervical region; I45.10 Unspecified right bundle-branch block; I10 Essential (primary) hypertension; E78.5 Hyperlipidemia, unspecified; J84.10 Pulmonary fibrosis, unspecified; E66.9 Obesity, unspecified; Z68.33 Body mass index [BMI] 33.0-33.9, adult; K80.20 Calculus of gallbladder without cholecystitis without obstruction; K76.0 Fatty (change of) liver, not elsewhere classified; F17.210 Nicotine dependence, cigarettes, uncomplicated; Z82.49 Family history of ischemic heart disease and other diseases of the circulatory system; Z79.82 Long term (current) use of aspirin; Z79.899 Other long term (current) drug therapy; Z79.1 Long term (current) use of non-steroidal anti-inflammatories (NSAID); Z88.0 Allergy status to penicillin
CPT/HCPCS: 36415; 71046; 76705; 78452; 80053; 80061; 83735; 84484; 85025; 85610; 85730; 93005; 93017; 93306; 99285

== ENCOUNTER → 2019-12-24 | Outpatient (CLI) | payer BC ==
--- NOTE | 2019-12-24 09:18 | CT ---
EXAMINATION TYPE: CT iac wo con DATE OF EXAM: 12/24/2019 COMPARISON: Same day CT brain study. HISTORY: Headache and hearing loss. Dizziness. CT DLP: 150 mGycm. Automated Exposure Control for Dose Reduction was Utilized. TECHNIQUE: CT scan of internal auditory canal is performed without contrast, thin cut axial images ar e obtained, coronal reformatted images are also reviewed. FINDINGS: The external auditory canals are patent bilaterally. Mastoid air cells show diminished for mation on the right with performed cells completely opacified, there is asymmetric right-sided sclero sis noted. The middle ear ossicles are symmetric and within normal limits. There is no evidence of suspicious s urrounding soft tissue density to suggest cholesteatoma on the left. Surrounding soft tissue density however is present on the right. The scutum remains preserved bilaterally. The cochlea and the semicircular canals are symmetric and unremarkable. Vestibular aqueduct and inte rnal carotid canal appear unremarkable. Temporomandibular joints are maintained bilaterally. Mild to moderate inferior mucosal thickening in the right maxillary sinus. There is 9 mm mucous retention cyst or polyp in the lateral aspect left sp henoid sinus. Visualized globes are intact bilaterally. IMPRESSION: Acute on chronic right-sided mastoiditis with right middle ear infection and/or cholestea deirdre. Correlate clinically.
--- NOTE | 2019-12-24 09:32 | CT ---
CT brain without and with contrast HISTORY: Headache, hearing loss Helical acquisition through the brain. Exam was performed pre- and postadministration of 100 cc Isovu e 300. Automated exposure control for dose reduction. DLP 2149.6 mGycm There is abnormal soft tissue involving the middle ear, soft tissues present about the auditory ossic les, there is some bone erosion involving the attic, increased opacity noted. No definite erosion. Ex ternal auditory canal is patent. The brain shows no abnormal enhancement following contrast administration. There is no hydrocephalus or hemorrhage. Mild inflammatory changes present within the sphenoid sinus on the left, right maxilla ry sinus. IMPRESSION: Findings could be indicative of cholesteatoma involving the right middle ear as described .
== END | disposition home or self-care (01) ==
LOC: RADCTMAIN 08:11
PROVIDERS: ATTEND Otolaryngology
DX: H70.001 Acute mastoiditis without complications, right ear (principal); H70.11 Chronic mastoiditis, right ear; R42 Dizziness and giddiness; R55 Syncope and collapse; R51 Headache; H91.90 Unspecified hearing loss, unspecified ear; H53.10 Unspecified subjective visual disturbances; Z88.0 Allergy status to penicillin
CPT/HCPCS: 70470; 70480; Q9967